=== PATIENT | female | born 1945 | race Caucasian/White ===

== ENCOUNTER → 2017-12-09 | Outpatient (CLI) | payer MEDICARE ==
[~2017-12-09] MED LIST: ASPI-621 PO; ATOR40TA78 PO; BIFI4CAP PO; CALCIUM PO; CLOBETASOL PROP TP; CYCL100C12 PO; GLUC-121 PO; LEVO125T PO; LOSA25TA5 PO; SERT100T5 PO; VITAMIN C PO; VITAMIN D3 PO; ZANTAC PO; ZOLP5TAB6 PO
[2017-12-09 12:24] LABS: ALANINE AMINOTRANSFERASE 47 U/L (12-78); ALBUMIN 3.6 g/dL (3.4-5.0); ANION GAP 9 mmol/L (5-15); CALCIUM 8.8 mg/dL (8.5-10.1); CHLORIDE 107 mmol/L (98-107); CREATININE 0.91 mg/dL (0.55-1.02)
[2017-12-09 12:26] LABS: ALKALINE PHOSPHATASE 113 U/L (45-117); BILIRUBIN,TOTAL 0.6 mg/dL (0.2-1.0); TOTAL PROTEIN 7.1 g/dL (6.4-8.2)
== END | disposition home or self-care (01) ==
LOC: STAR 11:13
PROVIDERS: ATTEND Orthopaedic Surgery
DX: Z01.818 Encounter for other preprocedural examination (principal); S80.01XA Contusion of right knee, initial encounter; X58.XXXA Exposure to other specified factors, initial encounter; Y93.89 Activity, other specified; Y92.89 Other specified places as the place of occurrence of the external cause; Y99.8 Other external cause status
CPT/HCPCS: 36415; 80053; 93005

== ENCOUNTER 2017-12-20 06:09 | Day surgery (SDC) | payer MEDICARE ==
[~2017-12-20] VITALS: Ht 175.3 cm; Wt 71.7 kg
[2017-12-20] MEDS ORDERED: BUPIVACAINE/PF-EPI 0.5% 1:200K ONE (06:27)
[2017-12-20] MEDS ORDERED: LIDOCAINE 1%-EPI 1:100K, 30ML ONE (06:27)
[2017-12-20] MEDS ORDERED: LACTATED RINGERS 1,000 ML IV SCH (06:50)
[2017-12-20] MEDS ORDERED: LIDOCAINE-MPF 1%, 2ML INFIL ONE (07:00)
[2017-12-20] MEDS ORDERED: OXYcodone IR 5MG TABLET PO ONE (07:00)
[2017-12-20] MEDS ORDERED: ACETAMINOPHEN 500 MG TABLET PO ONE (07:00)
[2017-12-20] MEDS ORDERED: FENTANYL PF 100 MCG/2ML ONE ×2 (07:13→08:32)
[2017-12-20] MEDS ORDERED: MIDAZOLAM 1 MG/ML, 2ML ONE (07:20)
[2017-12-20] MEDS ORDERED: LIDOCAINE 1%-EPI 1:100K, 30ML INFIL ONE (07:42)
[2017-12-20] MEDS ORDERED: DEXAMETHASONE 4 MG/ML, 1ML ONE ×2 (07:54)
[2017-12-20] MEDS ORDERED: KETOROLAC 30 MG/1 ML ONE (07:54)
[2017-12-20] MEDS ORDERED: CEFAZOLIN 1,000 MG ONE ×2 (07:54)
[2017-12-20] MEDS ORDERED: ONDANSETRON 2MG/ML, 2ML ONE (07:54)
[2017-12-20] MEDS ORDERED: BUPIVACAINE/PF-EPI 0.5% 1:200K INFIL ONE (07:57)
[2017-12-20] MEDS ORDERED: PROMETHAZINE 25 MG/ML, 1ML IV PRN (08:30)
[2017-12-20] MEDS ORDERED: OXYcodone 5 MG/5 ML ORAL.SOL UDC PO PRN (08:30)
[2017-12-20] MEDS ORDERED: FENTANYL PF 100 MCG/2ML IV PRN ×2 (08:30→09:00)
[2017-12-20] MEDS ORDERED: ASPIRIN 81 MG TABLET EC PO SCH (09:00)
[2017-12-20] MEDS ORDERED: LOSARTAN POTASSIUM 25 MG PO SCH (09:00)
[2017-12-20] MEDS ORDERED: TEMPLATE NON-FORMULARY MED. (Zolpidem Tartrate** 5 MG) PO SCH (09:00)
[2017-12-20] MEDS ORDERED: CYCLOSPORINE (SANDIMUNE) 100 MG CAPSULE PO SCH (09:00)
[2017-12-20] MEDS ORDERED: SERTRALINE HCL 100 MG PO SCH (09:00)
[2017-12-20] MEDS ORDERED: ATORVASTATIN 40 MG TABLET PO SCH (21:00)
[2017-12-21] MEDS ORDERED: LEVOTHYROXINE 125 MCG TABLET PO SCH (06:00)
== END 2017-12-20 10:10 ==
LOC: OUT 06:09
PROVIDERS: ATTEND Orthopaedic Surgery
DX: S83.231A Complex tear of medial meniscus, current injury, right knee, initial encounter (principal); S83.271A Complex tear of lateral meniscus, current injury, right knee, initial encounter; M94.261 Chondromalacia, right knee; K21.9 Gastro-esophageal reflux disease without esophagitis; E78.5 Hyperlipidemia, unspecified; E11.9 Type 2 diabetes mellitus without complications; X58.XXXA Exposure to other specified factors, initial encounter; Y93.89 Activity, other specified; Y92.89 Other specified places as the place of occurrence of the external cause; Y99.8 Other external cause status; Z87.39 Personal history of other diseases of the musculoskeletal system and connective tissue; Z87.891 Personal history of nicotine dependence; Z88.1 Allergy status to other antibiotic agents; Z88.5 Allergy status to narcotic agent; Z88.8 Allergy status to other drugs, medicaments and biological substances; Z79.899 Other long term (current) drug therapy; Z79.82 Long term (current) use of aspirin
CPT/HCPCS: 29880; J0690; J1100; J1885; J2405; J3010; J3490; J7120; J2250